=== PATIENT | female | born 2000 | race Two or more races ===

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

== ENCOUNTER 2022-01-13 20:00 | Emergency (ER) | payer BC, OTHER ==
[~2022-01-13] VITALS: Ht 170.2 cm; Wt 61.2 kg
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
[2022-01-13] MEDS ORDERED: ONDANSETRON HCL/PF 4 MG/2 ML VIAL ONE (21:20)
[2022-01-13] MEDS ORDERED: ONDANSETRON HCL/PF 4 MG/2 ML VIAL IVP ONE (21:30)
[2022-01-13] MEDS ORDERED: IV NS 0.9% 1,000 ML BAG IV ONE (21:30)
[2022-01-13] MEDS ORDERED: KETOROLAC TROMETHAMINE INJ 30 MG/ML VIAL ONE (21:35)
--- NOTE | 2022-01-13 21:44 | NUR ---
LAC #18G S/L BLOOD COLLECTED AND SENT TO LAB. GAVE PT URINE CUP; NOT ABLE TO URINATE AT THIS TIME. WILL F/U
[2022-01-13 21:49] LABS: BASOPHILS % (AUTO) 0.4 % (0.0-2.0); EOSINOPHILS % (AUTO) 0.2 % (0.0-6.0); HEMATOCRIT 39 % (33-45); HEMOGLOBIN 12.9 g/dL (11.5-14.8); LYMPHOCYTES # (AUTO) 1.8 K/uL (0.8-4.8); LYMPHOCYTES % (AUTO) 20.1 % (20.0-44.0); MEAN CORPUSCULAR HGB CONC 33 g/dl (31.0-36.0); MEAN CORPUSCULAR VOLUME 85 fL (82-100); MONOCYTES # (AUTO) 0.9 K/uL (0.1-1.30); MONOCYTES % (AUTO) 9.5 % (2.0-12.0); NEUTROPHILS # (AUTO) 6.4 K/uL (1.8-8.9); NEUTROPHILS % (AUTO) 69.8 % (43.0-81.0); PLATELET COUNT (AUTO) 216 K/uL (150-450); WHITE BLOOD COUNT (AUTO) 9.2 K/uL (4.3-11.0)
--- NOTE | 2022-01-13 21:51 | NUR ---
URINE COLLECTED AND SENT TO LAB
[2022-01-13 21:58] LABS: CALCIUM, SERUM 9.1 mg/dL (8.5-10.1); CREATININE 0.7 mg/dL (0.6-1.3); POTASSIUM 3.3 mmol/L (3.5-5.1)
[2022-01-13] MEDS ORDERED: KETOROLAC TROMETHAMINE INJ 30 MG/ML VIAL IV ONE (22:00)
[2022-01-13 22:03] LABS: BILIRUBIN,DIRECT 0.1 mg/dL (0.0-0.2); BILIRUBIN,TOTAL 0.4 mg/dL (0.2-1.0); TOTAL PROTEIN, SERUM 7.8 g/dL (6.4-8.2)
--- NOTE | 2022-01-13 22:31 | NUR ---
PER LAB, RECIEVED URINE
[2022-01-13 22:36] LABS: BILIRUBIN,URINE NEGATIVE (NEGATIVE); COLOR,URINE YELLOW (YELLOW); LEUKOCYTE ESTERASE ,URINE NEGATIVE (NEGATIVE); NITRITE, URINE NEGATIVE (NEGATIVE); PROTEIN,URINE NEGATIVE (NEGATIVE); UGLUCOSE NEGATIVE (NEGATIVE); UROBILINOGEN,URINE 0.2 EU/dL (0.2)
[2022-01-13 22:41] LABS: BACTERIA,URINE Rare /HPF (None Seen); RBC,URINE 0-2 /HPF (0-2); SQUAMOUS EPITHELIAL CELL,UR Few /HPF (None Seen)
--- NOTE | 2022-01-13 22:59 | NUR ---
US TECH AT PT'S BEDSIDE
--- NOTE | 2022-01-13 23:08 | NUR ---
PER US TECH PIPER RESULTS : RT OVARIAN CYST 2.0 CM SMAL FREEFLUID POST CUL-DE-SAC. OTHERWISE NORMAL EXAM
[2022-01-13] MEDS ORDERED: POTASSIUM CHLORIDE 20 MEQ TAB.PRT.SR PO ONE ×2 (23:28→23:30)
[2022-01-13 23:53] VITALS: BP 112/74
--- NOTE | 2022-01-13 23:53 | NUR ---
Patient discharged to home in stable condition. Written and verbal after care instructions given. Patient verbalizes understanding of instruction. IV removed. Catheter intact and site benign. Pressure and 4x4 applied to site. No bleeding noted. pt ambulatory with a steady gait
== END 2022-01-13 23:54 | disposition home or self-care (01) ==
LOC: ER 20:08
DX: K62.5 Hemorrhage of anus and rectum (principal); T76.21XA Adult sexual abuse, suspected, initial encounter; E87.6 Hypokalemia; E86.0 Dehydration; R11.0 Nausea; R10.2 Pelvic and perineal pain; F41.9 Anxiety disorder, unspecified; F32.A Depression, unspecified; Z88.8 Allergy status to other drugs, medicaments and biological substances; Z60.2 Problems related to living alone
CPT/HCPCS: 99284; 96374; 76856; 96361; 96375; 85025; 80048; 83690; 80076; 84703; 81001; 36415; J1885; J2405; J7030 ×2; A6403